=== PATIENT | female | born 1995 | race Caucasian/White ===

== ENCOUNTER 2021-03-18 10:08 | Emergency (ER) | payer MEDICAID ==
[~2021-03-18] VITALS: Ht 157.5 cm; Wt 78.0 kg
[2021-03-18 10:15] VITALS: BP 112/80
[2021-03-18] MEDS ORDERED: diazePAM 5 MG TAB PO ONE (11:10)
[2021-03-18] MEDS ORDERED: KETOROLAC 30 MG/ML VIAL IM ONE (11:10)
[2021-03-18] MEDS ORDERED: NAPR-54 PO (13:21)
[2021-03-18 13:26] VITALS: BP 123/76
== END 2021-03-18 13:26 | disposition home or self-care (01) ==
LOC: MED 10:08
DX: R07.89 Other chest pain (principal); M79.602 Pain in left arm
CPT/HCPCS: 71045; 81025; 93005; 96372; 99283; J1885

== ENCOUNTER 2021-05-16 23:07 | Emergency (ER) | payer MEDICAID ==
[~2021-05-16] VITALS: Ht 157.5 cm; Wt 77.1 kg
[~2021-05-16 23:07] MED LIST: NAPR-54 PO
[2021-05-16 23:09] VITALS: BP 119/68
--- NOTE | 2021-05-16 23:09 | NUR ---
TO BED AMBULATORY
--- NOTE | 2021-05-16 23:24 | NUR ---
AO 25 Y/O PRESENTED TO ED C/O VAGINAL BLEEDING X 1 DAY . PT STATES SHE IS APPROX 11 WEEKS PREG BUT WAS TOLD EARLIER THIS WEEK BABY DOES NOT HAVE A HEARTBEAT. PT STATES BLEEDING JUST STARTED TODAY BUT SHE STATES ITS ONLY WHEN SHE URINATES WITH SOME CLOTS. PT DESCRIBES PAIN INTENSE CRAMPING. PT STATES SHE HAS BEEN TAKING TYLENOL W/ NO RELIEF. ABD FLAT, SOFT AND NONTENDER. NORMOACTIVE BOWEL SOUNDS. PT RESTING IN BED, LOCKED AND IN LOWEST POSITION, HOB ELEVATED, SIDE RAIL X 1. VSS. NO ACUTE DISTRESS NOTED. PMH: DENIES NKA
--- NOTE | 2021-05-16 23:44 | NUR ---
ERMD AT BEDSIDE FOR MEDICAL EVALUATION.
--- NOTE | 2021-05-17 00:02 | NUR ---
PT AMBULATED TO RESTROOM W/ STEADY GAIT.
[2021-05-17] MEDS ORDERED: NACL 0.9% 1,000 ML IV ONE (00:15)
[2021-05-17] MEDS ORDERED: ACETAMINOPHEN EXTRA STRENGTH 500 MG TAB PO ONE (00:15)
--- NOTE | 2021-05-17 00:24 | NUR ---
20G IV PLACED IN LEFT AC , BLOOD LABS DRAWN FROM IV AND HANDED TO NICHOL, FROM LAB.
[2021-05-17 00:31] LABS: BASOPHILS # (AUTO) 0.1 K/uL (0.00-0.22); BASOPHILS % (AUTO) 0.6 % (0.0-2.0); EOSINOPHILS # (AUTO) 0.1 K/uL (0-0.4); EOSINOPHILS % (AUTO) 0.6 % (0.0-4.0); HEMATOCRIT 37.8 % (36-48); HEMOGLOBIN 12.6 g/dL (12.0-16.0); LYMPHOCYTES # (AUTO) 3.3 K/uL (2.5-16.5); LYMPHOCYTES % (AUTO) 25.7 % (20.5-51.1); MEAN CORPUSCULAR HEMOGLOBIN 31 pg (27-31); MEAN CORPUSCULAR HGB CONC 33 g/dL (33-37); MEAN CORPUSCULAR VOLUME 94.1 fL (80-94); MONOCYTES # (AUTO) 0.8 K/uL (0.8-1.0); MONOCYTES % (AUTO) 6.5 % (1.7-9.3); NEUTROPHILS # (AUTO) 8.4 K/uL (1.8-7.7); NEUTROPHILS % (AUTO) 66.6 % (42.2-75.2); PLATELET COUNT (AUTO) 311 K/uL (140-450); RED BLOOD CELL COUNT(AUTO) 4.02 MIL/uL (4.20-5.40); RED CELL DISTRIBUTION WIDTH 13.5 % (11.6-13.7); WHITE BLOOD COUNT (AUTO) 12.7 K/uL (4.8-10.8)
[2021-05-17 00:33] LABS: APPEARANCE,URINE CLOUDY (CLEAR); BILIRUBIN,URINE 1+ (NEGATIVE); BLOOD, URINE 3+ (NEGATIVE); COLOR,URINE YELLOW (YELLOW); LEUKOCYTE ESTERASE ,URINE NEGATIVE (NEGATIVE); NITRITE, URINE NEGATIVE (NEGATIVE); PH,URINE 5.5 (5.0-9.0); UGLUCOSE NEGATIVE (NEGATIVE)
--- NOTE | 2021-05-17 00:36 | NUR ---
PT REFUSED TYLENOL MEDICATION - STATES SHE IS UNABLE TO TAKE MEDICATION IN PILL FORM. ERMD MADE AWARE.
[2021-05-17 00:40] LABS: RBC,URINE 20-50 /HPF (0-5); WBC,URINE 0-5 /HPF (0-5)
[2021-05-17 00:41] LABS: URINE AMORPHOUS URATE 3+ /HPF (None Seen)
[2021-05-17 00:50] LABS: CARBON DIOXIDE 22.9 mmol/L (21-32); CREATININE 0.8 mg/dL (0.6-1.3); POTASSIUM 3.5 mmol/L (3.5-5.1)
--- NOTE | 2021-05-17 00:59 | NUR ---
Ultrasound at bedside.
[2021-05-17 01:09] LABS: ALBUMIN 3.4 g/dL (3.4-5.0); ANION GAP 18.7 (8-16); TOTAL BILIRUBIN 0.5 mg/dL (0.0-1.0)
--- NOTE | 2021-05-17 01:42 | NUR ---
PT AMBULATED TO RESTROOM W/ STEADY GAIT.
--- NOTE | 2021-05-17 02:31 | NUR ---
Pt resting w/ eyes closed, visible rise and fall of chest. VSS. No acute distress noted.
[2021-05-17] MEDS ORDERED: cephALEXin 500 MG CAP PO ONE (02:40)
--- NOTE | 2021-05-17 03:17 | NUR ---
ERMD at bedside for further medical evaluation.
[2021-05-17] MEDS ORDERED: MISOPROSTOL 200 MCG TAB PO ONE (03:25)
[2021-05-17] MEDS ORDERED: HYDROcodone/APAP 5/325 MG 1 TAB TAB PO ONE (03:25)
[2021-05-17] MEDS ORDERED: IBUPROFEN 800 MG TAB PO ONE (03:25)
[2021-05-17] MEDS ORDERED: HYDR-5080 PO (03:28)
[2021-05-17] MEDS ORDERED: IBUP-2218 PO (03:28)
[2021-05-17] MEDS ORDERED: CEPH-588 PO (03:30)
[2021-05-17] MEDS ORDERED: CRUSHER, PILL MC ONE (03:36)
--- NOTE | 2021-05-17 03:50 | NUR ---
IV removed, catheter intact and site benign. Applied folded 4x4 gauze and tape to stop bleeding.
[2021-05-17 04:18] VITALS: BP 118/72
--- NOTE | 2021-05-17 04:18 | NUR ---
Patient discharged with v/s stable. Written and verbal after care instructions given and explained. Patient alert, oriented and verbalized understanding of instructions. Ambulatory with steady gait. All questions addressed prior to discharge. ID band removed. Patient advised to follow up with PMD. Rx of keflex, norco & motrin given. Patient educated on indication of medication including possible reaction and side effects. Opportunity to ask questions provided and answered.
[2021-05-18] MEDS ORDERED: IBUP-2213 PO (14:59)
== END 2021-05-17 04:18 | disposition home or self-care (01) ==
LOC: MED 23:07
DX: O02.1 Missed abortion (principal); Z3A.11 11 weeks gestation of pregnancy; Z79.899 Other long term (current) drug therapy
CPT/HCPCS: 36415; 76801; 80053; 81001; 84702; 85025; 85379; 85384; 85610; 85730; 86900; 86901; 87086; 96360; 99285; J7030

== ENCOUNTER 2021-05-17 06:05 | Observation (INO) | payer MEDICAID, SELFPAY ==
[~2021-05-17] VITALS: Ht 157.5 cm; Wt 77.1 kg
[~2021-05-17 06:05] MED LIST changes: +CEPH-588 PO; +HYDR-5080 PO; +IBUP-2218 PO
[2021-05-17 06:13] VITALS: BP 130/83
[2021-05-17 06:30] LABS: BASOPHILS % (AUTO) 0.3 % (0.0-2.0); EOSINOPHILS # (AUTO) 0.2 K/uL (0-0.4); EOSINOPHILS % (AUTO) 1.5 % (0.0-4.0); HEMATOCRIT 34.2 % (36-48); HEMOGLOBIN 11.4 g/dL (12.0-16.0); LYMPHOCYTES # (AUTO) 2.6 K/uL (2.5-16.5); LYMPHOCYTES % (AUTO) 20.4 % (20.5-51.1); MEAN CORPUSCULAR HEMOGLOBIN 31 pg (27-31); MEAN CORPUSCULAR HGB CONC 33 g/dL (33-37); MEAN CORPUSCULAR VOLUME 93.9 fL (80-94); MONOCYTES # (AUTO) 0.8 K/uL (0.8-1.0); MONOCYTES % (AUTO) 6.5 % (1.7-9.3); NEUTROPHILS # (AUTO) 9.1 K/uL (1.8-7.7); NEUTROPHILS % (AUTO) 71.3 % (42.2-75.2); PLATELET COUNT (AUTO) 343 K/uL (140-450); RED BLOOD CELL COUNT(AUTO) 3.64 MIL/uL (4.20-5.40); WHITE BLOOD COUNT (AUTO) 12.8 K/uL (4.8-10.8)
[2021-05-17 06:39] LABS: ANION GAP 18.3 (8-16); CREATININE 0.8 mg/dL (0.6-1.3); POTASSIUM 3.3 mmol/L (3.5-5.1)
[2021-05-17] MEDS ORDERED: ONDANSETRON 4 MG/2 ML VIAL IVP ONE ×2 (06:40→07:05)
[2021-05-17] MEDS ORDERED: KETOROLAC 30 MG/ML VIAL IVP ONE (06:40)
[2021-05-17] MEDS ORDERED: NACL 0.9% 1,000 ML IV ONE (06:40)
[2021-05-17 06:45] LABS: ALBUMIN 2.9 g/dL (3.4-5.0); TOTAL BILIRUBIN 0.6 mg/dL (0.0-1.0)
[2021-05-17] MEDS ORDERED: MORPHINE SULFATE 4 MG/ML SYR IVP ONE (07:05)
[2021-05-17] MEDS ORDERED: METHYLERGONOVINE 0.2 MG/ML AMP IM ONE (07:45)
[2021-05-17] MEDS ORDERED: MORPHINE SULFATE 2 MG/ML SYR IVP ONE (07:50)
[2021-05-17] MEDS ORDERED: MISOPROSTOL 25 MCG TAB VG SCH (12:00)
[2021-05-17 12:11] VITALS: BP 106/69
[2021-05-17] MEDS ORDERED: LACTATED RINGERS 1,000 ML IV SCH (12:40)
[2021-05-17] MEDS: MISOPROSTOL 200 MCG TAB PO SCH ×2 (13:10→18:55)
[2021-05-17] MEDS: ACETAMINOPHEN 325 MG TAB PO PRN (13:10)
[2021-05-17 16:38] LABS: APPEARANCE,URINE CLEAR (CLEAR); BILIRUBIN,URINE 1+ (NEGATIVE); BLOOD, URINE 3+ (NEGATIVE); COLOR,URINE RED (YELLOW); LEUKOCYTE ESTERASE ,URINE TRACE (NEGATIVE); NITRITE, URINE NEGATIVE (NEGATIVE); UGLUCOSE NEGATIVE (NEGATIVE)
[2021-05-17 17:26] LABS: RBC,URINE >100 /HPF (0-5)
[2021-05-17] MEDS: oxyCODONE/APAP 5/325 MG 1 TAB TAB PO PRN ×2 (18:10→20:09)
[2021-05-18] MEDS: MISOPROSTOL 200 MCG TAB PO SCH ×2 (01:05→07:08)
[2021-05-18 05:04] LABS: BASOPHILS % (AUTO) 0.6 % (0.0-2.0); EOSINOPHILS # (AUTO) 0.2 K/uL (0-0.4); EOSINOPHILS % (AUTO) 3.2 % (0.0-4.0); HEMATOCRIT 21.8 % (36-48); HEMOGLOBIN 7.3 g/dL (12.0-16.0); LYMPHOCYTES # (AUTO) 2.4 K/uL (2.5-16.5); LYMPHOCYTES % (AUTO) 33.6 % (20.5-51.1); MEAN CORPUSCULAR HEMOGLOBIN 32 pg (27-31); MEAN CORPUSCULAR HGB CONC 33 g/dL (33-37); MEAN CORPUSCULAR VOLUME 94.3 fL (80-94); MONOCYTES # (AUTO) 0.4 K/uL (0.8-1.0); MONOCYTES % (AUTO) 5.9 % (1.7-9.3); NEUTROPHILS # (AUTO) 4.1 K/uL (1.8-7.7); NEUTROPHILS % (AUTO) 56.7 % (42.2-75.2); PLATELET COUNT (AUTO) 224 K/uL (140-450); RED BLOOD CELL COUNT(AUTO) 2.31 MIL/uL (4.20-5.40); WHITE BLOOD COUNT (AUTO) 7.3 K/uL (4.8-10.8)
[2021-05-18] MEDS: ACETAMINOPHEN 325 MG TAB PO PRN (07:32)
[2021-05-18] MEDS ORDERED: POTASSIUM CHLORIDE 10 MEQ TABER PO SCH (08:00)
[2021-05-18] MEDS ORDERED: NACL 0.9% 1,000 ML IV SCH (13:25)
[2021-05-18] MEDS ORDERED: IBUP-2213 PO (14:59)
[2021-05-18] MEDS: oxyCODONE/APAP 5/325 MG 1 TAB TAB PO PRN (15:08)
[2021-05-18 17:01] LABS: BASOPHILS % (AUTO) 0.5 % (0.0-2.0); EOSINOPHILS # (AUTO) 0.1 K/uL (0-0.4); EOSINOPHILS % (AUTO) 2.1 % (0.0-4.0); HEMATOCRIT 24.8 % (36-48); HEMOGLOBIN 8.3 g/dL (12.0-16.0); LYMPHOCYTES # (AUTO) 2.2 K/uL (2.5-16.5); LYMPHOCYTES % (AUTO) 31.4 % (20.5-51.1); MEAN CORPUSCULAR HEMOGLOBIN 31 pg (27-31); MEAN CORPUSCULAR HGB CONC 34 g/dL (33-37); MEAN CORPUSCULAR VOLUME 92.5 fL (80-94); MONOCYTES # (AUTO) 0.3 K/uL (0.8-1.0); MONOCYTES % (AUTO) 4.6 % (1.7-9.3); NEUTROPHILS # (AUTO) 4.3 K/uL (1.8-7.7); NEUTROPHILS % (AUTO) 61.4 % (42.2-75.2); PLATELET COUNT (AUTO) 221 K/uL (140-450); RED BLOOD CELL COUNT(AUTO) 2.68 MIL/uL (4.20-5.40); RED CELL DISTRIBUTION WIDTH 14.6 % (11.6-13.7); WHITE BLOOD COUNT (AUTO) 6.9 K/uL (4.8-10.8)
== END 2021-05-18 18:58 | disposition home or self-care (01) ==
LOC: MED 06:05 → MTU 10:29 → MFCC 12:20
PROVIDERS: ADMIT Obstetrics & Gynecology; ATTEND Obstetrics & Gynecology
DX: O02.1 Missed abortion (principal); O46.91 Antepartum hemorrhage, unspecified, first trimester; Z3A.11 11 weeks gestation of pregnancy
CPT/HCPCS: 36415; 76856; 80053; 81001; 85025; 86886; 86900; 86901; 86920; 87426; 88305; 96361; 96372; 96374; 96375; 96376; 99285; G0378; J1885; J2210; J2270; J2405; P9016; G0379

== ENCOUNTER 2021-11-25 14:08 | Emergency (ER) | payer MEDICAID, SELFPAY ==
[~2021-11-25] VITALS: Ht 157.5 cm; Wt 76.2 kg
[2021-11-25 14:29] VITALS: BP 121/77
[2021-11-25] MEDS ORDERED: ACETAMINOPHEN EXTRA STRENGTH 500 MG TAB PO ONE (15:25)
[2021-11-25] MEDS ORDERED: LORATADINE 10 MG TAB PO ONE (15:25)
[2021-11-25] MEDS ORDERED: ACETAMINOPHEN EXTRA STRENGTH 500 MG TAB ONE (17:27)
[2021-11-25] MEDS ORDERED: LORATADINE 10 MG TAB ONE (17:27)
--- NOTE | 2021-11-25 17:31 | NUR ---
NOVEL SWAB COLLECTED AND WALKED TO LAB
[2021-11-25] MEDS ORDERED: LORA10TA19 PO (17:48)
[2021-11-25] MEDS ORDERED: ACET-10509 PO (17:48)
[2021-11-25 19:15] VITALS: BP 136/62
--- NOTE | 2021-11-26 02:28 | NUR ---
Patient discharged with v/s stable. Written and verbal after care instructions given and explained. Patient verbalized understanding. Ambulatory with steady gait. All questions addressed prior to discharge. Advised to follow up with PMD.
== END 2021-11-26 02:28 | disposition home or self-care (01) ==
LOC: MED 14:08
DX: O98.512 Other viral diseases complicating pregnancy, second trimester (principal); U07.1 COVID-19; O99.512 Diseases of the respiratory system complicating pregnancy, second trimester; J06.9 Acute upper respiratory infection, unspecified; O99.712 Diseases of the skin and subcutaneous tissue complicating pregnancy, second trimester; L50.9 Urticaria, unspecified; Z3A.15 15 weeks gestation of pregnancy; Z79.899 Other long term (current) drug therapy; Z79.2 Long term (current) use of antibiotics; Z79.1 Long term (current) use of non-steroidal anti-inflammatories (NSAID); Z79.891 Long term (current) use of opiate analgesic
CPT/HCPCS: 99283; U0003

== ENCOUNTER 2023-01-03 19:12 | Emergency (ER) | payer MEDICAID ==
[~2023-01-03] VITALS: Ht 157.5 cm; Wt 74.8 kg
[~2023-01-03 19:12] MED LIST changes: +ACET-10509 PO; +LORA10TA19 PO
[2023-01-03 19:24] VITALS: BP 121/81
--- NOTE | 2023-01-03 19:30 | NUR ---
PT TO BED 09.
--- NOTE | 2023-01-03 19:35 | NUR ---
CHEN EXAMINATING PATIENT.
--- NOTE | 2023-01-03 19:37 | NUR ---
PT COMPLAINING OF UNILATERAL SWELLING OF RIGHT SIDE OF FACE. RIGHT SIDE OF LIP AND FOREHEAD APPEAR SWOLLEN. PT HAS NO KNOWN ALLERGIES. STS SHE WOKE UP AND NOTICED SWELLING. DENIES ANY TRAUMA. NO VISIBLE BIG BITE SOSA. RESP E/U. AOX4. SPEECH CLEAR. NO SWELLING OF TONGUE NOTED. AIRWAY PATENT.
[2023-01-03 19:39] VITALS: BP 121/81
[2023-01-03] MEDS ORDERED: BEN50 PO (19:53)
--- NOTE | 2023-01-03 19:56 | NUR ---
d/c with VSS. d/c education given. opportunity to ask questions given and answered. rx of benadryl given.
== END 2023-01-03 19:57 | disposition home or self-care (01) ==
LOC: MED 19:12
DX: K13.0 Diseases of lips (principal)
CPT/HCPCS: 99282